=== PATIENT | female | born 1960 | race Caucasian/White ===

== ENCOUNTER 2018-03-03 09:23 | Day surgery (SDC) | payer BC ==
[~2018-03-03 09:23] MED LIST: Lactated Ringers 1,000 ML IV SCH; Lidocaine 1%/Sod Bicarbonate in NS 8.4% 1 ML Syringe IDERM PRN; Sodium Chloride 0.9% 10 ML Syringe FLUSH PRN
--- NOTE | 2018-03-03 10:27 | PCM.PREANE ---
Preanesthetic Assessment - Anesthesia/Transfusion/Family Hx Anesthesia History: Prior Anesthesia Without Reaction Family History of Anesthesia Reaction: No Transfusion History: No Prior Transfusion(s) - Review of Systems General: No Symptoms Pulmonary: No Symptoms Cardiovascular: No Symptoms Gastrointestinal: No Symptoms Neurological: No Symptoms Other: Reports: None - Physical Assessment NPO Status Date: 03/02/18 NPO Status Time: 23:45 Pulse: 76 O2 Sat by Pulse Oximetry: 93 Respiratory Rate: 16 Blood Pressure: 152/85 Temperature: 36.5 C Vital Signs: Last Vital Signs Temp 36.5 C 03/03/18 09:54 Pulse Resp 16 03/03/18 09:54 BP 152/85 H 03/03/18 09:54 Pulse Ox 93 L 03/03/18 09:54 Height: 1.6 m Weight: 87.543 kg ASA Class: 2 Mental Status: Alert & Oriented x3 Airway Class: Mallampati = 1 Dentition: Reports: Normal Dentition Thyro-Mental Finger Breadths: 3 Mouth Opening Finger Breadths: 3 ROM/Head Extension: Full Lungs: Clear to Auscultation, Normal Respiratory Effort Cardiovascular: Regular Rate, Regular Rhythm, No Murmurs - Allergies Allergies/Adverse Reactions: Allergies Allergy/AdvReac Type Severity Reaction Status Date / Time codeine Allergy Nausea Verified 03/02/18 13:55 - Blood Blood Available: No Product(s) Available: None - Anesthesia Plan Pre-Op Medication Ordered: None - Acknowledgements Anesthesia Type Planned: MAC Pt an Appropriate Candidate for the Planned Anesthesia: Yes Alternatives and Risks of Anesthesia Discussed w Pt/Guardian: Yes Pt/Guardian Understands and Agrees with Anesthesia Plan: Yes PreAnesthesia Questionnaire HEENT History: Reports: Impaired Vision, Sinusitis, Other (See Below) Other HEENT History: eustachian tube radio Cardiovascular History: Reports: Hypertension Respiratory History: Reports: Other (See Below) Other Respiratory History: cough Gastrointestinal History: Reports: None Genitourinary History: Reports: None [employer] History: Reports: Endometriosis, Other (See Below) Other OB/BYN History: left breast lump Musculoskeletal History: Reports: None Neurological History: Reports: None Psychiatric History: Reports: Anxiety Endocrine/Metabolic History: Reports: None Hematologic History: Reports: None Immunologic History: Reports: None Oncologic (Cancer) History: Reports: None Dermatologic History: Reports: Other (See Below) Other Dermatologic History: solar keratosis - Past Surgical History Head Surgeries/Procedures: Reports: None Cardiovascular Surgical History: Reports: None Respiratory Surgical History: Reports: None Female Surgical History: Reports: Hysterectomy, Salpingo-Oophorectomy Endocrine Surgical History: Reports: None Neurological Surgical History: Reports: None Musculoskeletal Surgical History: Reports: None Oncologic Surgical History: Reports: None - SUBSTANCE USE Smoking Status *Q: Never Smoker Tobacco Use Within Last Twelve Months: No Second Hand Smoke Exposure: No Days Per Week of Alcohol Use: 0 Number of Drinks Per Day: 0 Total Drinks Per Week: 0 Recreational Drug Use History: No - HOME MEDS Home Medications: Home Meds Aspirin [Adult Aspirin] 81 mg PO DAILY 03/02/18 [History] Cholecalciferol (Vitamin D3) [Vitamin D3] 2,000 unit PO DAILY 03/02/18 [History] Fluticasone Propionate [Flonase] 1 spray NASBOTH DAILY 03/02/18 [History] Loratadine 10 mg PO DAILY PRN 03/02/18 [History] Multivitamin [Daily Deisi] 1 tab PO DAILY 03/02/18 [History] Pravastatin Sodium [Pravastatin (Pravachol)] 60 mg PO DAILY 03/02/18 [History] Sertraline HCl 100 mg PO DAILY 03/02/18 [History] - CURRENT (IN HOUSE) MEDS Current Meds: Current Medications Lactated Ringer's (Ringers, Lactated) 1,000 mls @ 125 mls/hr IV ASDIRECTED DEMAR Stop: 03/03/18 23:00 Last Admin: 03/03/18 09:52 Dose: 125 mls/hr Lidocaine/Sodium Bicarbonate (Buffered Lidocaine 1% In Ns 8.4%) 0.25 ml IDERM ONETIME PRN PRN Reason: Prior to IV Start Stop: 03/03/18 18:00 Last Admin: 03/03/18 09:50 Dose: 0.25 ml Sodium Chloride (Saline Flush) 10 ml FLUSH ASDIRECTED PRN PRN Reason: Keep Vein Open Stop: 03/03/18 18:00
[2018-03-03] MEDS ORDERED: fentaNYL 100 MCG/2 ML SDV ONE (10:30)
[2018-03-03] MEDS ORDERED: Propofol 200 MG/20 ML SDV ONE ×2 (10:30→11:14)
[2018-03-03] MEDS ORDERED: Midazolam 1 MG/ML 2 ML SDV ONE (10:30)
[2018-03-03] MEDS ORDERED: Lidocaine 1% 4 ML ONE (10:31)
--- NOTE | 2018-03-03 11:30 | PCM.OPNOTE ---
- General Post-Op/Procedure Note Date of Surgery/Procedure: 03/03/18 Operative Procedure(s): Colonoscopy with cold forceps sigmoid polypectomy Findings: 1. Sigmoid diverticulosis 2. Diminutive sigmoid polyp Pre Op Diagnosis: Screening colonoscopy Post-Op Diagnosis: 1. Sigmoid diverticulosis. 2. Sigmoid polyp Anesthesia Technique: MAC, Moderate Sedation Primary Surgeon: Cesar Tomlin Pathology: Sigmoid polyp EBL in mLs: 0 Complications: None Condition: Good Free Text/Narrative:: After adequate IV sedation and analgesia was obtained with monitoring the patient was placed on her left side. Perianal inspection and digital rectal examination were performed and were unremarkable. A lubricated colonoscope was inserted into the rectum and advanced to the cecum without difficulty. The bowel preparation was excellent. The cecum ascending colon transverse and descending colons were endoscopically normal with no mass lesions or inflammatory changes. The sigmoid had diverticulosis and a distal polyp was removed with cold forceps. The rectum in both views was unremarkable. Air was removed as I finished the procedure which she tolerated well. Photographs were taken for the patient for the medical record.
--- NOTE | 2018-03-03 11:32 | PCM48HPAN ---
Post Anesthesia Note - EVALUATION WITHIN 48HRS OF ANESTHETIC Vital Signs in Normal Range: Yes Patient Participated in Evaluation: Yes Respiratory Function Stable: Yes Airway Patent: Yes Cardiovascular Function Stable: Yes Hydration Status Stable: Yes Pain Control Satisfactory: Yes Nausea and Vomiting Control Satisfactory: Yes Mental Status Recovered: Yes Pulse Rate: 66 SaO2: 95 Resp Rate: 12 Temperature: 98.5 F Blood Pressure: 102/59
== END 2018-03-03 12:30 | disposition home or self-care (01) ==
LOC: JD.SDS 09:23
PROVIDERS: ATTEND Surgery
DX: Z12.11 Encounter for screening for malignant neoplasm of colon (principal); D12.5 Benign neoplasm of sigmoid colon; K57.30 Diverticulosis of large intestine without perforation or abscess without bleeding; I10 Essential (primary) hypertension; E78.00 Pure hypercholesterolemia, unspecified; F41.9 Anxiety disorder, unspecified; Z79.82 Long term (current) use of aspirin; Z79.899 Other long term (current) drug therapy; Z80.0 Family history of malignant neoplasm of digestive organs; Z88.5 Allergy status to narcotic agent
CPT/HCPCS: 45380; J2001; J2250; J3010; J7120; 00811; J2704